=== PATIENT | male | born 1995 | race African-American/Black ===

== ENCOUNTER 2021-01-30 18:37 | Emergency (ER) | payer OTHER ==
[~2021-01-30] VITALS: Ht 175.3 cm; Wt 54.4 kg
[2021-01-30] MEDS ORDERED: NOHOMEMEDICATIONS (20:35)
[2021-01-30 21:49] LABS: ABSOLUTE NEUTROPHILS 12.8 thou/uL (1.4-8.2); BASOPHILS 0.2 % (0.0-2.0); CALCIUM 8.3 mg/dL (8.5-10.1); CREATININE 0.9 mg/dL (0.7-1.3); EOSINOPHILS 0.4 % (0.0-3.0); LYMPHOCYTES 10.3 % (24.0-44.0); MCH 28.5 pg (26.0-34.0); MCHC 32.9 g/dL (28.0-37.0); MCV 86.7 fL (80.0-100.0); MONOCYTES 7.7 % (1.0-8.0); PLATELET COUNT 713 thou/uL (150-400); POLYS 81.4 % (36.0-66.0); POTASSIUM 3.5 mmol/L (3.5-5.1); RBC 2.24 mil/uL (4.50-6.00); RDW 16.7 % (10.5-14.5); WBC 15.8 thou/uL (4.0-11.0)
[2021-01-30 21:51] LABS: HEMOGLOBIN 6.4 gm/dL (14.0-18.0)
[2021-01-30 21:52] LABS: HEMATOCRIT 19.4 % (42.0-52.0)
[2021-01-30 21:55] LABS: ALBUMIN 2.1 g/dL (3.4-5.0); TOTAL BILIRUBIN 0.2 mg/dL (0.2-1.0); TOTAL PROTEIN 6.5 g/dL (6.4-8.2)
[2021-01-31 00:15] VITALS: BP 112/69
== END 2021-01-31 00:15 | disposition left against medical advice (07) ==
LOC: ER 18:37
PROVIDERS: Emergency Medicine
DX: S21.132A Puncture wound without foreign body of left front wall of thorax without penetration into thoracic cavity, initial encounter (principal); Z20.822 Contact with and (suspected) exposure to COVID-19; S51.812A Laceration without foreign body of left forearm, initial encounter; S51.811A Laceration without foreign body of right forearm, initial encounter; A41.9 Sepsis, unspecified organism; J18.9 Pneumonia, unspecified organism; D64.9 Anemia, unspecified; F17.210 Nicotine dependence, cigarettes, uncomplicated; W34.09XA Accidental discharge from other specified firearms, initial encounter; Y93.89 Activity, other specified; Y92.89 Other specified places as the place of occurrence of the external cause; Y99.9 Unspecified external cause status